=== PATIENT | female | born 1955 | race Caucasian/White ===

== ENCOUNTER 2017-09-15 06:40 | Day surgery (SDC) | payer OTHER ==
[~2017-09-15 06:40] MED LIST: CARAFATE1 GM PO; DELZICOL400 M1 PO; FOLIC ACID1 MG PO; GABAPENTIN100 MG PO; MECLIZINE HCL12.5 MG PO; TRAMADOL HCL50 MG PO; [UNRECOGNIZED DRUG - OTHER]
== END 2017-09-15 11:55 | disposition home or self-care (01) ==
LOC: CIR.AMB 06:40
DX: R15.9 Full incontinence of feces (principal)
CPT/HCPCS: 64581; C1778

== ENCOUNTER 2017-10-06 06:00 | Day surgery (SDC) | payer OTHER | END 2017-10-06 18:30 | disposition home or self-care (01) | LOC: CIR.AMB 06:00 → SURH 12:21 → CIR.AMB 13:23 → EDSTATUS 16:12 → CIR.AMB 16:16 | DX: R15.9 Full incontinence of feces (principal) | CPT/HCPCS: 64590; C1767 ==